=== PATIENT | female | born 2000 | race Caucasian/White ===

== ENCOUNTER 2021-05-02 20:26 | Emergency (ER) | payer OTHER ==
[2021-05-02 20:33] VITALS: BP 127/71; PULSE 104; TEMP 98.6; BMI 22.2
[2021-05-04 16:08] LABS: SARS-CoV-2 NAA Not Detected (Not Detected)
== END 2021-05-02 22:32 | disposition home or self-care (01) ==
LOC: JERFT 20:26
DX: R09.89 Other specified symptoms and signs involving the circulatory and respiratory systems (principal)
CPT/HCPCS: 70360-TC-FY; 99281-25; C9803; U0003; U0005

== ENCOUNTER 2023-03-07 04:11 | Day surgery (SDC) | payer OTHER ==
[2023-03-01 12:36] VITALS: BMI 21.4
[~2023-03-07 04:11] MED LIST: BUPIVACAINE HCL/PF 0.5% (5 MG/ML) 30 ML VIAL IJ ONE; DEXAMETHASONE SOD PHOSPHATE 10 MG/1 ML VIAL IM ONE; IOHEXOL 180 MG/1 ML ML IJ ONE; LIDOCAINE HCL 1% PRESERVATIVE FREE - 30ML VIAL IJ ONE
[2023-03-07] MEDS ORDERED: DEXAMETHASONE SOD PHOSPHATE 10 MG/1 ML VIAL ONE (07:35)
[2023-03-07] MEDS ORDERED: LIDOCAINE HCL/PF 1% SDV 5ML VIAL ONE (07:35)
[2023-03-07] MEDS ORDERED: BUPIVACAINE HCL/PF 0.25% (2.5MG/ML) 10 ML VIAL ONE (07:35)
[2023-03-07 09:26] VITALS: RESP 18
[2023-03-07] MEDS ORDERED: PROPOFOL 20 ML ONE (10:37)
[2023-03-07] MEDS ORDERED: DEXAMETHASONE SOD PHOSPHATE 10 MG/1 ML VIAL IM ONE (10:47)
[2023-03-07] MEDS ORDERED: BUPIVACAINE HCL/PF 0.5% (5 MG/ML) 30 ML VIAL IJ ONE (10:47)
[2023-03-07] MEDS ORDERED: IOHEXOL 180 MG/1 ML ML IJ ONE (10:47)
[2023-03-07] MEDS ORDERED: ACETAMINOPHEN 325 MG TABLET (FP) ONE (11:23)
[2023-03-07 12:39] VITALS: BP 122/65; PULSE 68; TEMP 98
[2023-03-07] MEDS ORDERED: ACETAMINOPHEN 325 MG TABLET (FP) PO ONE (12:45)
== END 2023-03-07 12:15 | disposition home or self-care (01) ==
LOC: JASU-SURG 04:11
PROVIDERS: ATTEND Physical Medicine & Rehabilitation
PROC: 3E0T3BZ Introduction of Anesthetic Agent into Peripheral Nerves and Plexi, Percutaneous Approach (ICD-10-PCS; principal; 2023-03-07 12:30)
DX: M47.812 Spondylosis without myelopathy or radiculopathy, cervical region (principal); M54.2 Cervicalgia
CPT/HCPCS: 76000-TC-FY; 81025; J1100

== ENCOUNTER 2024-10-22 04:14 | Day surgery (SDC) | payer OTHER ==
[2024-10-15 11:11] VITALS: BMI 23.0
[2024-10-22] MEDS ORDERED: ACETAMINOPHEN 325 MG TABLET (FP) PO PRN (10:30)
[2024-10-22] MEDS ORDERED: IBUPROFEN 400 MG TABLET (FP) PO PRN (10:30)
[2024-10-22] MEDS ORDERED: SUCCINYLCHOLINE CHLORIDE 200 MG/10 ML SYRINGE ONE (11:08)
[2024-10-22] MEDS ORDERED: PROPOFOL 40 ML ONE (11:08)
[2024-10-22] MEDS ORDERED: MIDAZOLAM HCL 2 MG/2 ML SINGLE DOSE VIAL ONE (11:09)
[2024-10-22] MEDS ORDERED: ONDANSETRON 4 MG/2 ML VIAL IVPUSH PRN (12:02)
[2024-10-22] MEDS ORDERED: oxyCODONE HCL 5 MG TABLET PO PRN ×2 (12:02)
[2024-10-22] MEDS ORDERED: LACTATED RINGERS SOLUTION 1,000 ML IV SCH (12:15)
[2024-10-22 15:09] VITALS: BP 131/80; PULSE 92; RESP 20; TEMP 98.9
== END 2024-10-22 15:32 | disposition home or self-care (01) ==
LOC: JASU-SURG 04:14
PROVIDERS: ATTEND Obstetrics & Gynecology
PROC: 0UB98ZZ Excision of Uterus, Via Natural or Artificial Opening Endoscopic (ICD-10-PCS; principal; 2024-10-22 10:15)
DX: N84.0 Polyp of corpus uteri (principal); N84.1 Polyp of cervix uteri; D25.0 Submucous leiomyoma of uterus
CPT/HCPCS: 81025; 86850; 86900; 86901; 88305-TC; 94760